=== PATIENT | female | born 1980 | race Caucasian/White ===

== ENCOUNTER 2018-04-10 09:00 | Inpatient (IN) | payer OTHER ==
[2018-04-10] MEDS ORDERED: BUTORPHANOL TARTRATE 1 MG/ML VIAL IVPB ONE (09:55)
[2018-04-10] MEDS ORDERED: PROMETHAZINE HCL 25 MG/1 ML VIAL IVPUSH ONE (09:55)
[2018-04-10] MEDS ORDERED: ELECTROLYTE-148 SOLN 1,000 ML IV SCH ×3 (10:00→16:15)
[2018-04-10] MEDS ORDERED: OXYTOCIN 30 UNITS in 0.9% NS 30 UNIT/500 ML INFUS.BAG IVPB SCH (10:00)
--- NOTE | 2018-04-10 10:42 | HP ---
Past Medical History - Primary Care Physician PCP:: Evelia North - Admission Chief Complaint: Here for labor induction. History of Present Illness: 37 y/o P1 female with SIUP at 41 weeks here for induction of labor due to late term . complicated only by AMA. h/o . H/o lymphoma - in remission. NO complaints today. History Source: Patient, Medical Record Limitations to Obtaining History: No Limitations - Past Medical History Cardiovascular: No: HTN Pulmonary: No: Asthma, COPD Gastrointestinal: No: GERD Heme/Onc: No: Anemia Infectious Disease: Yes: STD's, Other (h/o HSV, on valtrex, no outbreaks during , no lesions on exam today) Psych: No: Bipolar, Depression - Past Surgical History Hx Myomectomy: No Hx Transabdominal Cerclage: No - Smoking History Smoking history: Never smoked Have you smoked in the past 12 months: No Aproximately how many cigarettes per day: 0 - Alcohol/Substance Use Hx Alcohol Use: No History of Substance Use: reports: None - Social History Usual Living Arrangement: Yes: With Significant Other ADL: Independent History of Recent Travel: No Home Medications - Allergies Allergies/Adverse Reactions: Allergies Allergy/AdvReac Type Severity Reaction Status Date / Time No Known Allergies Allergy Verified 04/10/18 10:16 - Home Medications Home Medications: Ambulatory Orders Pnv No.95/Ferrous Fum/Folic AC [ Formula] 1 each PO DAILY 04/10/18 Valacyclovir HCl [Valtrex -] 500 mg PO DAILY 04/10/18 Review of Systems - Review of Systems Constitutional: reports: No Symptoms Eyes: reports: No Symptoms HENT: reports: No Symptoms Neck: reports: No Symptoms Cardiovascular: reports: No Symptoms Respiratory: reports: No Symptoms Gastrointestinal: reports: No Symptoms Genitourinary: reports: No Symptoms Breasts: reports: No Symptoms Reported Musculoskeletal: reports: No Symptoms Integumentary: reports: No Symptoms Neurological: reports: No Symptoms Endocrine: reports: No Symptoms Hematology/Lymphatic: reports: No Symptoms Psychiatric: reports: No Symptoms Physical Exam - Maternity Vital Signs: Vital Signs Temperature 98.2 F 04/10/18 09:30 Pulse Rate 97 H 04/10/18 09:30 Respiratory Rate 18 04/10/18 09:30 Blood Pressure 112/71 04/10/18 09:30 O2 Sat by Pulse Oximetry (%) Constitutional: Yes: Well Nourished, No Distress, Calm Eyes: Yes: Conjunctiva Clear, EOM Intact HENT: Yes: Atraumatic, Normocephalic Neck: Yes: Trachea Midline Cardiovascular: Yes: Regular Rate and Rhythm Lungs: Clear to auscultation - Abdominal Exam/OB Number of Fetuses: Single Presentation: Vertex Contractions: No Category: I Accelerations: Uniform Decelerations: None - Vaginal Exam/OB Dilatation (cm): 3 Effacement (%): 50 Amniotic Membrane Status: Intact Presentation: Vertex/Position Station: -3 - Physical Exam Psychiatric: Yes: Alert, Oriented Hemorrhage Risk Assessment - Risk Factors Medium Risk Factors: Yes: None High Risk Factors: Yes: None Risk Score: 1 Risk Level: Medium Risk Problem List - Problems (1) Post-dates Code(s): O48.0 - POST-TERM Qualifiers: Post-term type: 40-42 weeks gestation Qualified Code(s): O48.0 - Post-term Assessment/Plan 37 y/o with SIUP at 41 weeks for IOL Pitocin GBS negative
[2018-04-10 10:45] VITALS: BMI 30.2
[2018-04-10 10:47] LABS: BASO % 0.2 % (0-2.0); EOS % 0.3 % (0-4.5); HEMATOCRIT 39.5 % (32.4-45.2); HEMOGLOBIN 13.8 GM/dL (10.7-15.3); LYMPH % 10.4 % (8-40); MCH 32.3 pg (25.7-33.7); MCHC 34.9 g/dl (32.0-36.0); MEAN CELL VOLUME 92.6 fl (80-96); MEAN PLT VOLUME 8.3 fl (7.5-11.1); MONO % 6.7 % (3.8-10.2); NEUT % 82.4 % (42.8-82.8); PLATELET COUNT 212 K/MM3 (134-434); RBC 4.26 M/mm3 (3.60-5.2); WHITE BLOOD COUNT 10.4 K/mm3 (4.0-10.0)
[2018-04-10 10:56] LABS: INR 0.92 (0.83-1.09); PROTHROMBIN TIME (PATIENT) 10.9 SEC (9.7-13.0)
[2018-04-10] MEDS ORDERED: OXYTOCIN 30 UNITS in 0.9% NS 30 UNIT/500 ML INFUS.BAG IVPB ONE (10:58)
[2018-04-10 10:59] LABS: ACTIVATED PTT 27.3 SECONDS (25.2-36.5)
[2018-04-10 11:07] LABS: ANION GAP 9 MMOL/L (8-16); BLOOD UREA NITROGEN 10 mg/dL (7-18); CALCIUM 8.5 mg/dL (8.5-10.1); CHLORIDE 106 mmol/L (98-107); CO2 24 mmol/L (21-32); CREATININE 0.6 mg/dL (0.55-1.3); GLUCOSE,RANDOM 115 mg/dL (74-106); POTASSIUM 3.7 mmol/L (3.5-5.1); SODIUM 138 mmol/L (136-145)
[2018-04-10] MEDS ORDERED: FENTANYL/BUPIVACAINE/NS/PF - PCEA - 50 ML DISP.SYRIN EP ONE ×2 (15:46→20:29)
[2018-04-10] MEDS ORDERED: NALOXONE HCL 0.4 MG/ML VIAL IVPUSH PRN (15:58)
[2018-04-10] MEDS ORDERED: LIDO 2%/EPI 1:200000 PRESRVFRE (20 ML SDVIAL) ONE (16:00)
[2018-04-10] MEDS ORDERED: FENTANYL/BUPIVACAINE/NS/PF - PCEA - 50 ML DISP.SYRIN EP SCH (16:00)
--- NOTE | 2018-04-10 20:41 | PN ---
Ante-Partal Exam - Subjective Vital Signs: Vital Signs Temperature 97.7 F 04/10/18 14:00 Pulse Rate 88 04/10/18 19:45 Respiratory Rate 18 04/10/18 19:45 Blood Pressure 108/63 04/10/18 19:45 O2 Sat by Pulse Oximetry (%) 96 04/10/18 19:45 Bleeding: No Headache: Yes Visual changes: No Right upper quadrant pain: No - Contractions Contractions: Yes Regularity: Regular Intensity: Strong - Exam during Labor Category: I Monitor Accelerations: Present Monitor Decelerations: None Exam: Vaginal Dilatation (cm): 8 Effacement (%): 100 Amniotic Membrane Status: Ruptured (AROM for clear fluid) Amniotic Fluid: Clear Presentation: Vertex Station: 0 - Assessment/Plan Assessment/Plan: 37 y/o with SIUP at 41 weeks, IOL s/p pitocin and AROM s/p epidural continue current management anticipate
[2018-04-10] MEDS ORDERED: OXYTOCIN 20 UNITS in 0.9% NS 20 UNIT/1,000 ML INFUS.BAG IV ONE (21:56)
[2018-04-10] MEDS ORDERED: TUBERCULIN PPD 5 TU/0.1ML SYRINGE (IN PATIENT USE ONLY) ID ONE (22:00)
--- NOTE | 2018-04-10 22:00 | PN ---
Ante-Partal Exam - Subjective Vital Signs: Vital Signs Temperature 97.7 F 04/10/18 14:00 Pulse Rate 88 04/10/18 21:15 Respiratory Rate 18 04/10/18 21:15 Blood Pressure 104/60 04/10/18 21:15 O2 Sat by Pulse Oximetry (%) 97 04/10/18 21:15 Bleeding: No Headache: No Visual changes: No Right upper quadrant pain: No Pain (scale 1-10): 0 - Contractions Contractions: Yes Regularity: Regular Intensity: Strong - Exam during Labor Heart Rate: 130 Variability: Moderate Category: I Monitor Accelerations: Present Monitor Decelerations: None Exam: Vaginal Dilatation (cm): 10 Effacement (%): 100 Amniotic Membrane Status: Ruptured Amniotic Fluid: Clear Station: +1 - Assessment/Plan Assessment/Plan: To begin pushing
--- NOTE | 2018-04-10 23:17 | PN ---
Delivery - Delivery Vaginal Delivery: No Problems Type of Anesthesia: Epidural Episiotomy/Laceration: 2nd degree EBL (cc): 250 Delivery, Single - Stages of Labor Date of Delivery: 04/10/18 Date Placenta Delivered: 04/10/18 Placenta: Yes: Spontaneous - Condition of Infant Combination Technician/Administrative Office Clerk Present: No Gender: Female Position: Right, OA - 1 Minute Total Score: 9 5 Minutes Total Score: 9 - Feeding Plan Initial Plan: Elected not to breastfeed exclusively throughout hospitalization Remarks - Remarks Remarks: Uncomplicated of baby girl from YVROSE position anterior shoulder (left) delivered with ease along with remainder of cord clamped and cut (3VC noted) mouth and nose bulb suctioned after delivery, tactile stimulation completed by nursery staff Apgars 9/9 sponge count and needle count correct mom stable baby to well baby nursery
[2018-04-10] MEDS ORDERED: BENZOCAINE 20% 57 GM BOTTLE TP PRN (23:29)
[2018-04-10] MEDS ORDERED: BISACODYL 10 MG SUPP.RECT RC PRN (23:29)
[2018-04-10] MEDS ORDERED: METHYLERGONOVINE MALEATE 0.2 MG/1 ML AMP IM PRN (23:29)
[2018-04-10] MEDS ORDERED: WITCH HAZEL 50% (TUCKS) 40 PAD/JAR PAD TP PRN (23:29)
[2018-04-10] MEDS ORDERED: BENZOCAINE 28 GM HEMORRHOIDAL OINTMENT TP PRN (23:29)
[2018-04-10] MEDS ORDERED: OXYTOCIN 20 UNITS in 0.9% NS 20 UNIT/1,000 ML INFUS.BAG IV SCH (23:30)
--- NOTE | 2018-04-11 05:57 | PN ---
Post Progress Note - Subjective Subjective: Pt seen/examined, feeling well. Some leg/perineum soreness otherwise no complaints. Ambulating, voiding, passing flatus. VB moderate and decreasing. Type of Delivery: Vital Signs: Vital Signs Temperature 98.2 F 04/11/18 05:40 Pulse Rate 106 H 04/11/18 05:40 Respiratory Rate 18 04/11/18 05:40 Blood Pressure 118/73 04/11/18 05:40 O2 Sat by Pulse Oximetry (%) 98 04/11/18 00:30 Uterus: Yes: Fundus Firm, Non-tender Abdomen/GI: Yes: Abdomen soft, Tolerating PO Lochia: Yes: Rubra Lochia, amount: Moderate Extremities: Yes: Calves non-tender. No: Edema Perineum: Yes: Laceration (2nd degree) Activity: Ambulating - Labs Labs: CBC WBC 10.4 K/mm3 (4.0-10.0) H 04/10/18 10:05 RBC 4.26 M/mm3 (3.60-5.2) 04/10/18 10:05 Hgb 13.8 GM/dL (10.7-15.3) 04/10/18 10:05 Hct 39.5 % (32.4-45.2) 04/10/18 10:05 MCV 92.6 fl (80-96) 04/10/18 10:05 MCH 32.3 pg (25.7-33.7) 04/10/18 10:05 MCHC 34.9 g/dl (32.0-36.0) 04/10/18 10:05 RDW 14.0 % (11.6-15.6) 04/10/18 10:05 Plt Count 212 K/MM3 (134-434) 04/10/18 10:05 MPV 8.3 fl (7.5-11.1) D 04/10/18 10:05 Absolute Neuts (auto) 8.6 K/mm3 (1.5-8.0) H 04/10/18 10:05 Neutrophils % 82.4 % (42.8-82.8) 04/10/18 10:05 Lymphocytes % 10.4 % (8-40) D 04/10/18 10:05 Monocytes % 6.7 % (3.8-10.2) D 04/10/18 10:05 Eosinophils % 0.3 % (0-4.5) D 04/10/18 10:05 Basophils % 0.2 % (0-2.0) 04/10/18 10:05 Nucleated RBC % 0 % (0-0) 04/10/18 10:05 Problem List - Problems (1) Post-dates Code(s): O48.0 - POST-TERM Qualifiers: Post-term type: 40-42 weeks gestation Qualified Code(s): O48.0 - Post-term Assessment/Plan 37 y/o PPD#1 s/p normal regular diet PO pain meds await CBC routine care
[2018-04-11] MEDS: IBUPROFEN 600 MG TABLET (FP) PO PRN ×2 (07:59→17:34)
[2018-04-11] MEDS: ACETAMINOPHEN 325 MG TABLET (FP) PO PRN ×2 (08:00→17:33)
[2018-04-11 09:11] LABS: BASO % 0.1 % (0-2.0); EOS % 0.2 % (0-4.5); HEMATOCRIT 38.7 % (32.4-45.2); HEMOGLOBIN 13.1 GM/dL (10.7-15.3); LYMPH % 7.5 % (8-40); MCH 31.7 pg (25.7-33.7); MCHC 33.7 g/dl (32.0-36.0); MEAN CELL VOLUME 94.1 fl (80-96); MEAN PLT VOLUME 8.3 fl (7.5-11.1); MONO % 8.2 % (3.8-10.2); PLATELET COUNT 196 K/MM3 (134-434); RBC 4.11 M/mm3 (3.60-5.2); RDW 14.3 % (11.6-15.6); WHITE BLOOD COUNT 17.5 K/mm3 (4.0-10.0)
[2018-04-11] MEDS ORDERED: FLU VACCINE QUAD 60 MCG/0.5 ML (MDV 18-19) IM ONE (10:00)
[2018-04-11] MEDS: PRENATAL VITAMINS W/ FOLIC ACID TABLET (FP) PO SCH (10:19)
[2018-04-11] MEDS ORDERED: SENNOSIDES/DOCUSATE COMBO (SENNA PLUS) TABLET (UD) PO PRN (22:00)
[2018-04-12] MEDS: IBUPROFEN 600 MG TABLET (FP) PO PRN ×2 (01:01→10:43)
[2018-04-12] MEDS: ACETAMINOPHEN 325 MG TABLET (FP) PO PRN ×2 (01:02→10:43)
--- NOTE | 2018-04-12 06:51 | DS ---
Physical Exam-EXECUTIVE RECEPTIONIST Vital Signs: Vital Signs Temperature 98.2 F 04/11/18 20:27 Pulse Rate 90 04/11/18 20:27 Respiratory Rate 20 04/11/18 20:27 Blood Pressure 104/56 L 04/11/18 20:27 O2 Sat by Pulse Oximetry (%) 98 04/11/18 00:30 Labs: CBC, BMP 04/11/18 08:00 04/10/18 10:05 Delivery - Delivery Vaginal Delivery: No Problems Type of Anesthesia: Epidural Episiotomy/Laceration: 2nd degree EBL (cc): 250 Delivery, Single - Stages of Labor Date 1st Stage Initiatied: 04/10/18 Time 1st Stage Initiated: 09:00 Date 2nd Stage Initiated: 04/10/18 Time 2nd Stage Initiated: 22:00 Date of Delivery: 04/10/18 Time of Delivery: 22:57 Time Placenta Delivered: 23:00 Placenta: Yes: Spontaneous - Condition of Musical Instrument Mechanic/Supervisor Park Workers Present: No Gender: Female Weight: 7 lb 11 oz Position: Right, OA Total Hours ROM (Hrs/Mins): 1hr. - 1 Minute Total Score: 9 5 Minutes Total Score: 9 - Feeding Plan Initial Plan: Elected not to breastfeed exclusively throughout hospitalization Discharge Summary Reason For Visit: INDUCTION OF LABOR Current Active Problems Post-dates (Acute) Procedures: Principal: normal Hospital Course: Pt admitted in for labor induction on 04/10/18. She underwent uncomplicated induction and delivery on that date (see delivery note). She had an unremarkable post course and was discharged home on post day 2. Condition: Good - Instructions Diet, Activity, Other Instructions: Physical activity Resume your normal everyday activity as tolerated no heavy lifting or exercise until seen by your surgeon. You may walk unlimited joshua of and climb stairs. You may resume driving the car when you feel safe and comfortable behind the wheel. No sexual activity as instructed. Wound care If you have a bandage, leave it on, and keep dry for 48-72 hours. After that time discard the outer bandage. If they are tapes on the skin under the out of bandage leave them in place. They will peel off in the next 7 to 10 days. Do Not Peel them off. You may shower the day after surgery. If there are tapes present on the skin, you may shower over them. Diet There are no dietary restrictions. Eat healthy, high-fiber foods. Drink 6 to 8 glasses of liquid each day. This will assist in keeping your bowels are regular. Pain management You may take Tylenol or acetaminophen or Ibuprofen (for example, Motrin, Advil etc.) from my pain prescription medication is ordered should be taken as prescribed for moderate to severe pain. Call MD for any of the following: Severe pain not relieved by medication Fever of 101 or higher Excessive bleeding or drainage on dressing Inability to urinate Referrals: Evelia North DO [Staff Physician] - Disposition: HOME - Home Medications Comprehensive Discharge Medication List: Ambulatory Orders Pnv No.95/Ferrous Fum/Folic AC [ Formula] 1 each PO DAILY 04/10/18 Valacyclovir HCl [Valtrex -] 500 mg PO DAILY 04/10/18 Ibuprofen [Motrin -] 600 mg PO QID #28 tablet 04/11/18
[2018-04-12] MEDS: PRENATAL VITAMINS W/ FOLIC ACID TABLET (FP) PO SCH (10:42)
[2018-04-12 15:10] VITALS: BP 104/69; PULSE 83; TEMP 98.6
== END 2018-04-12 16:30 | disposition home or self-care (01) | DRG 560 ==
LOC: JLDR 09:00 → J3W 04-11 01:07
PROVIDERS: ADMIT Obstetrics & Gynecology; ATTEND Obstetrics & Gynecology
PROC: 10E0XZZ Delivery of Products of Conception, External Approach (ICD-10-PCS; principal; 2018-04-10)
PROC: 0KQM0ZZ Repair Perineum Muscle, Open Approach (ICD-10-PCS; 2018-04-10)
DX: O48.0 Post-term pregnancy (principal); O98.313 Other infections with a predominantly sexual mode of transmission complicating pregnancy, third trimester; A60.09 Herpesviral infection of other urogenital tract; O70.1 Second degree perineal laceration during delivery; Z85.72 Personal history of non-Hodgkin lymphomas; Z3A.41 41 weeks gestation of pregnancy; Z37.0 Single live birth
CPT/HCPCS: 36415; 59409; 80048; 85025; 85610; 85730; 86593; 86850; 86900; 86901; 90686; G0008

== ENCOUNTER 2020-03-31 20:55 | Emergency (ER) | payer OTHER ==
[2020-03-31 21:14] VITALS: BP 102/66; PULSE 88; TEMP 98.1; BMI 21.0
[2020-03-31] MEDS ORDERED: SODIUM CHLORIDE 0.9% 500 ML INFUS.BAG IV ONE (21:17)
[2020-03-31] MEDS ORDERED: KETOROLAC TROMETHAMINE 30 MG/1 ML VIAL IVPUSH ONE (21:18)
[2020-03-31] MEDS ORDERED: ONDANSETRON 4 MG/2 ML VIAL IVPUSH ONE (21:18)
[2020-03-31] MEDS ORDERED: PANTOPRAZOLE SODIUM 40 MG VIAL IVPUSH ONE (21:18)
[2020-03-31] MEDS ORDERED: KETOROLAC TROMETHAMINE 30 MG/1 ML VIAL ONE (21:41)
[2020-03-31] MEDS ORDERED: ONDANSETRON 4 MG/2 ML VIAL ONE (21:41)
[2020-03-31] MEDS ORDERED: PANTOPRAZOLE SODIUM 40 MG VIAL ONE (21:42)
[2020-03-31 22:00] LABS: BASO % 0.2 % (0-2.0); HEMATOCRIT 32.4 % (32.4-45.2); HEMOGLOBIN 10.5 GM/dL (10.7-15.3); LYMPH % 6.4 % (8-40); MCH 24.9 pg (25.7-33.7); MCHC 32.4 g/dl (32.0-36.0); MEAN PLT VOLUME 8.5 fl (7.5-11.1); MONO % 4.1 % (3.8-10.2); NEUT % 89.3 % (42.8-82.8); PLATELET COUNT 378 K/MM3 (134-434); RDW 17.2 % (11.6-15.6); WHITE BLOOD COUNT 8.9 K/mm3 (4.0-10.0)
[2020-03-31 22:19] LABS: CHLORIDE 102 mmol/L (98-107); POTASSIUM 3.9 mmol/L (3.5-5.1); SODIUM 137 mmol/L (136-145)
[2020-03-31 22:22] LABS: CALCIUM 9.5 mg/dL (8.5-10.1)
[2020-03-31 22:23] LABS: ALBUMIN 4.4 g/dl (3.4-5.0); ANION GAP 6 MMOL/L (8-16); BLOOD UREA NITROGEN 12.6 mg/dL (7-18); CO2 29 mmol/L (21-32); GLUCOSE,RANDOM 116 mg/dL (74-106); LIPASE 45 U/L (73-393)
[2020-03-31 22:26] LABS: CREATININE 0.8 mg/dL (0.55-1.3); SGOT/AST 12 U/L (15-37); SGPT/ALT 15 U/L (13-61)
[2020-03-31 22:27] LABS: BILIRUBIN,TOTAL 0.4 mg/dL (0.2-1); TOT PROT 8.5 g/dl (6.4-8.2)
[2020-03-31 22:29] LABS: ALK PHOS 59 U/L (45-117)
== END 2020-03-31 23:26 | disposition home or self-care (01) ==
LOC: JER 20:55
PROC: 3E0333Z Introduction of Anti-inflammatory into Peripheral Vein, Percutaneous Approach (ICD-10-PCS; principal; 2020-03-31)
PROC: 3E033NZ Introduction of Analgesics, Hypnotics, Sedatives into Peripheral Vein, Percutaneous Approach (ICD-10-PCS; 2020-03-31)
PROC: 3E033GC Introduction of Other Therapeutic Substance into Peripheral Vein, Percutaneous Approach (ICD-10-PCS; 2020-03-31)
DX: R11.2 Nausea with vomiting, unspecified (principal)
CPT/HCPCS: 36415; 80053; 83690; 84702; 85025; 99285-25; C9803; U0003

== ENCOUNTER 2020-09-26 16:24 | Emergency (ER) | payer OTHER ==
[2020-09-26 16:57] VITALS: TEMP 97.8; BMI 22.8
[2020-09-26] MEDS ORDERED: METOCLOPRAMIDE HCL INJECTION 10 MG/2 ML VIAL IVPUSH ONE (17:16)
[2020-09-26] MEDS ORDERED: ACETAMINOPHEN 1000 MG/100 ML VIAL (NON FORMULARY) IVPB ONE (17:16)
[2020-09-26] MEDS ORDERED: SODIUM CHLORIDE 0.9% 500 ML INFUS.BAG IV ONE (17:17)
[2020-09-26] MEDS ORDERED: KETOROLAC TROMETHAMINE 30 MG/1 ML VIAL IVPUSH ONE (17:25)
[2020-09-26] MEDS ORDERED: KETOROLAC TROMETHAMINE 30 MG/1 ML VIAL ONE (17:50)
[2020-09-26] MEDS ORDERED: METOCLOPRAMIDE HCL INJECTION 10 MG/2 ML VIAL ONE (18:00)
[2020-09-26] MEDS ORDERED: ACETAMINOPHEN 500 MG TABLET (FP) PO ONE (19:11)
[2020-09-26] MEDS ORDERED: ACETAMINOPHEN 325 MG TABLET (FP) ONE (19:23)
[2020-09-26 19:48] VITALS: BP 121/87; PULSE 82
== END 2020-09-26 19:50 | disposition home or self-care (01) ==
LOC: JER 16:24
PROC: 3E033GC Introduction of Other Therapeutic Substance into Peripheral Vein, Percutaneous Approach (ICD-10-PCS; principal; 2020-09-26)
PROC: 3E0333Z Introduction of Anti-inflammatory into Peripheral Vein, Percutaneous Approach (ICD-10-PCS; 2020-09-26)
PROC: 3E033GC Introduction of Other Therapeutic Substance into Peripheral Vein, Percutaneous Approach (ICD-10-PCS; 2020-09-26)
DX: R51.9 Headache, unspecified (principal)
CPT/HCPCS: 99284-25